=== PATIENT | male | born 1995 | race Caucasian/White ===

== ENCOUNTER 2020-05-27 08:55 | Emergency (ER) | payer OTHER ==
[~2020-05-27] VITALS: Ht 182.9 cm; Wt 111.4 kg
[2020-05-27 09:06] VITALS: BP 127/71; PULSE 82
[2020-05-27] MEDS ORDERED: NORCO 325 MG-51 TAB PO (09:23)
[2020-05-27] MEDS ORDERED: AMOXICILLIN 50500 MG PO (09:23)
[2020-05-27 09:37] VITALS: TEMP 98.3
== END 2020-05-27 09:37 | disposition home or self-care (01) ==
LOC: COL.ER 08:55
DX: R68.84 Jaw pain (principal); Z88.6 Allergy status to analgesic agent

== ENCOUNTER 2020-07-12 02:01 | Emergency (ER) | payer OTHER ==
[~2020-07-12] VITALS: Ht 182.9 cm; Wt 109.1 kg
[~2020-07-12 02:01] MED LIST: AMOXICILLIN 50500 MG PO; NORCO 325 MG-51 TAB PO
[2020-07-12] MEDS ORDERED: PREDNISONE20 MG PO (03:36)
[2020-07-12 03:56] VITALS: BP 133/72; PULSE 82; TEMP 98.1
== END 2020-07-12 03:57 | disposition home or self-care (01) ==
LOC: COL.ER 02:01
DX: J44.1 Chronic obstructive pulmonary disease with (acute) exacerbation (principal); Z88.6 Allergy status to analgesic agent
CPT/HCPCS: J7512

== ENCOUNTER 2020-07-14 10:21 | Emergency (ER) | payer OTHER ==
[~2020-07-14] VITALS: Ht 182.9 cm; Wt 104.5 kg
[~2020-07-14 10:21] MED LIST changes: +PREDNISONE20 MG PO
[2020-07-14 10:31] VITALS: TEMP 98.2
[2020-07-14] MEDS ORDERED: COMBIRESP IH (10:53)
[2020-07-14] MEDS ORDERED: ZYRTEC 10MG10 MG PO (10:54)
[2020-07-14] MEDS ORDERED: SPIRIVA RESPIMAT4 GM IH (10:54)
[2020-07-14] MEDS ORDERED: ALBUTEROL0.83 MG/ML IH (10:55)
[2020-07-14] MEDS ORDERED: 00186-0372-20 IH (10:56)
[2020-07-14] MEDS ORDERED: PREDNISONE20 MG PO (11:11)
[2020-07-14 11:50] VITALS: BP 131/75; PULSE 105
== END 2020-07-14 11:52 | disposition home or self-care (01) ==
LOC: COL.ER 10:21
DX: J44.1 Chronic obstructive pulmonary disease with (acute) exacerbation (principal); Z88.6 Allergy status to analgesic agent; Z79.52 Long term (current) use of systemic steroids; Z79.51 Long term (current) use of inhaled steroids
CPT/HCPCS: J7512

== ENCOUNTER 2020-07-22 06:08 | Emergency (ER) | payer OTHER ==
[~2020-07-22] VITALS: Ht 182.9 cm; Wt 109.1 kg
[~2020-07-22 06:08] MED LIST changes: +00186-0372-20 IH; +ALBUTEROL0.83 MG/ML IH; +COMBIRESP IH; +SPIRIVA RESPIMAT4 GM IH; +ZYRTEC 10MG10 MG PO
[2020-07-22] MEDS ORDERED: PREDNISONE20 MG PO (06:20)
[2020-07-22 06:22] VITALS: TEMP 97.5
[2020-07-22 07:40] VITALS: BP 137/74; PULSE 83
== END 2020-07-22 07:43 | disposition home or self-care (01) ==
LOC: COL.ER 06:08
DX: J44.1 Chronic obstructive pulmonary disease with (acute) exacerbation (principal); Z90.49 Acquired absence of other specified parts of digestive tract; Z88.6 Allergy status to analgesic agent
CPT/HCPCS: J7512

== ENCOUNTER 2020-07-26 04:47 | Emergency (ER) | payer OTHER ==
[~2020-07-26] VITALS: Ht 182.9 cm; Wt 104.5 kg
[2020-07-26 05:04] VITALS: TEMP 98.2
[2020-07-26 07:00] VITALS: BP 127/95; PULSE 91
== END 2020-07-26 07:00 | disposition home or self-care (01) ==
LOC: COL.ER 04:47
DX: J44.1 Chronic obstructive pulmonary disease with (acute) exacerbation (principal); Z79.51 Long term (current) use of inhaled steroids
CPT/HCPCS: J8540

== ENCOUNTER 2020-07-27 01:53 | Emergency (ER) | payer OTHER ==
[~2020-07-27] VITALS: Ht 182.9 cm; Wt 109.1 kg
[2020-07-27 02:00] VITALS: TEMP 98.6
[2020-07-27 03:09] VITALS: BP 128/75
[2020-07-27 03:13] LABS: ARTERIAL BLD GAS O2 SATURATION 87.9 % (92-100); ARTERIAL BLD GAS TCO2 CT 20.6; ARTERIAL BLOOD GAS BASE EXCESS -3.5 (-2-2); ARTERIAL BLOOD GAS HCO3 19.6 meq/L (22-26); ARTERIAL BLOOD GAS PCO2 30.6 mmHg (35-45); ARTERIAL BLOOD GAS PO2 53.1 mmHg (80-100); ARTERIAL BLOOD GAS pH 7.43 (7.35-7.45)
[2020-07-27 05:43] VITALS: PULSE 86
== END 2020-07-27 05:43 | disposition home or self-care (01) ==
LOC: COL.ER 01:53
PROVIDERS: Emergency Medicine
DX: J44.1 Chronic obstructive pulmonary disease with (acute) exacerbation (principal); Z88.6 Allergy status to analgesic agent
CPT/HCPCS: A4614; J8540

== ENCOUNTER 2020-07-28 02:20 | Emergency (ER) | payer OTHER ==
[~2020-07-28] VITALS: Ht 182.9 cm; Wt 104.5 kg
[2020-07-28 02:33] VITALS: TEMP 98.7
[2020-07-28 03:40] VITALS: BP 119/73; PULSE 73
[2020-07-29] MEDS ORDERED: PREDNISONE20 MG PO (07:24)
== END 2020-07-28 03:40 | disposition home or self-care (01) ==
LOC: COL.ER 02:20
DX: J44.1 Chronic obstructive pulmonary disease with (acute) exacerbation (principal); Z79.51 Long term (current) use of inhaled steroids
CPT/HCPCS: A4614

== ENCOUNTER 2020-07-29 06:23 | Emergency (ER) | payer OTHER ==
[~2020-07-29] VITALS: Ht 182.9 cm; Wt 104.5 kg
[2020-07-29 06:46] VITALS: BP 129/75; TEMP 98.8
[2020-07-29] MEDS ORDERED: PREDNISONE20 MG PO (07:24)
[2020-07-29 08:15] VITALS: PULSE 70
== END 2020-07-29 08:15 | disposition home or self-care (01) ==
LOC: COL.ER 06:23
DX: J44.1 Chronic obstructive pulmonary disease with (acute) exacerbation (principal); Z88.6 Allergy status to analgesic agent; Z79.51 Long term (current) use of inhaled steroids
CPT/HCPCS: J8540

== ENCOUNTER 2020-09-09 19:41 | Emergency (ER) | payer OTHER ==
[~2020-09-09] VITALS: Ht 182.9 cm; Wt 104.5 kg
[2020-09-09 19:49] VITALS: BP 133/80; TEMP 98.5
[2020-09-09] MEDS ORDERED: PROAIR HFA0.09 MG/AC IH (20:25)
[2020-09-09] MEDS ORDERED: PREDNISONE20 MG PO (20:25)
[2020-09-09] MEDS ORDERED: ZYRTEC 10MG10 MG PO (20:25)
[2020-09-09] MEDS ORDERED: SPIRIVA RESPIMAT4 GM IH (20:25)
[2020-09-09] MEDS ORDERED: COMBIRESP IH (20:25)
[2020-09-09] MEDS ORDERED: 00186-0372-20 IH (20:25)
[2020-09-09 20:40] VITALS: PULSE 94
== END 2020-09-09 20:43 | disposition home or self-care (01) ==
LOC: COL.ER 19:41
DX: Z76.0 Encounter for issue of repeat prescription (principal); J44.9 Chronic obstructive pulmonary disease, unspecified; Z79.52 Long term (current) use of systemic steroids; Z79.51 Long term (current) use of inhaled steroids

== ENCOUNTER 2020-09-29 11:56 | Emergency (ER) | payer OTHER ==
[~2020-09-29] VITALS: Ht 182.9 cm; Wt 104.5 kg
[~2020-09-29 11:56] MED LIST changes: +PROAIR HFA0.09 MG/AC IH
[2020-09-29 12:01] VITALS: BP 134/79; TEMP 97.6
[2020-09-29] MEDS ORDERED: ALBUTEROL0.83 MG/ML IH (12:21)
[2020-09-29] MEDS ORDERED: COMBIRESP IH ×3 (12:21→12:27)
[2020-09-29 12:47] VITALS: PULSE 83
== END 2020-09-29 12:47 | disposition home or self-care (01) ==
LOC: COL.ER 11:56
DX: Z76.0 Encounter for issue of repeat prescription (principal); J44.9 Chronic obstructive pulmonary disease, unspecified; Z88.6 Allergy status to analgesic agent; Z79.51 Long term (current) use of inhaled steroids